=== PATIENT | female | born 1950 | race Caucasian/White ===

== ENCOUNTER 2017-04-22 07:33 | Emergency (ER) | payer MEDICARE, OTHER ==
[2017-04-22 11:03] LABS: ADD MAN DIFF? NO
[2017-04-22 11:10] LABS: WHITE BLOOD COUNT 7.2 10^3/ul (4.8-10.8)
[2017-04-22 11:10] LABS: BASOPHILS % 0.6 % (0.0-2.0); EOSINOPHILS # 0.1 10^3/ul (0.0-0.5); EOSINOPHILS % 0.8 % (0.0-7.0); HEMATOCRIT 34.6 % (37.0-47.0); HEMOGLOBIN 11.5 g/dl (12.0-16.0); LYMPHOCYTES # 0.9 10^3/ul (0.8-2.9); LYMPHOCYTES % 12.7 % (15.0-51.0); MEAN CORPUSCULAR HEMOGLOBIN 26.5 pg (29.0-33.0); MEAN CORPUSCULAR HGB CONC 33.2 g/dl (32.0-37.0); MEAN CORPUSCULAR VOLUME 79.7 fl (82.0-101.0); MEAN PLATELET VOLUME 11.1 fl (7.4-10.4); MONOCYTE # 0.5 10^3/ul (0.3-0.9); MONOCYTES % 7.3 % (0.0-11.0); NEUTROPHIL # 5.6 10^3/ul (1.6-7.5); NEUTROPHILS % 78.2 % (39.0-77.0); PLATELET COUNT 297 10^3/UL (140-415); RED BLOOD COUNT 4.34 10^6/ul (4.20-5.40); RED CELL DISTRIBUTION WIDTH 14.1 % (11.5-14.5)
[2017-04-22 11:30] LABS: ANION GAP 14 (8-16); BLOOD UREA NITROGEN 23 mg/dl (7-20); CALCIUM 8.6 mg/dl (8.4-10.2); CARBON DIOXIDE 24 mmol/L (21-31); CHLORIDE 107 mmol/L (97-110); CREATININE 0.93 mg/dl (0.44-1.00); GLUCOSE 153 mg/dl (70-220); POTASSIUM 4.2 mmol/L (3.5-5.1); SODIUM 141 mmol/L (135-144)
[2017-04-22 11:39] LABS: B-TYPE NATRIURETIC PEPTIDE 8680 PG/ML (0-125)
[2017-04-22 11:42] LABS: TROPONIN-I 0.071 ng/ml (0.00-0.12)
[2017-04-22 11:48] LABS: ADD UMIC YES; UR ASCORBIC ACID NEGATIVE (NEGATIVE); UR BACTERIA MANY /HPF (NONE SEEN); UR BILIRUBIN (Dip) NEGATIVE (NEGATIVE); UR BLOOD (Dip) 1+ mg/dL (NEGATIVE); UR CLARITY CLOUDY (CLEAR); UR COLOR YELLOW (YELLOW); UR GLUCOSE (Dip) NEGATIVE (NEGATIVE); UR KETONES (Dip) NEGATIVE (NEGATIVE); UR LEUKOCYTE ESTERASE (Dip) NEGATIVE Leu/ul (NEGATIVE); UR MUCUS FEW /HPF (NONE SEEN); UR NITRITE (Dip) NEGATIVE (NEGATIVE); UR RBC 6 /HPF (0-5); UR SPECIFIC GRAVITY (Dip) 1.018 (1.003-1.030); UR TOTAL PROTEIN (Dip) 3+ mg/dl (NEGATIVE); UR UROBILINOGEN (Dip) NEGATIVE (NEGATIVE); UR WBC 18 /HPF (0-5)
[2017-04-22] MEDS: ACETAMINOPHEN 325 MG TAB PO (12:42)
[2017-04-22 13:17] LABS: D-DIMER 1168.97 ng/ml (<460)
[2017-04-22 14:16] LABS: TROPONIN-I 0.078 ng/ml (0.00-0.12)
[2017-04-22] MEDS: IODIXANOL LOCM 100 ML BTL (15:49)
[2017-04-22] MEDS: SOD CHLORIDE 0.9% 100 ML (15:49)
[2017-04-22] MEDS: ONDANSETRON 4 MG INJ IV (17:06)
== END 2017-04-22 17:21 | disposition home or self-care (01) ==
LOC: FTE 07:33
DX: R05 Cough (principal); R06.02 Shortness of breath; I10 Essential (primary) hypertension; E03.9 Hypothyroidism, unspecified; E11.9 Type 2 diabetes mellitus without complications; R50.9 Fever, unspecified
CPT/HCPCS: 36415; 71045; 71275; 80048; 81001; 83880; 84484; 85025; 85378; 87086; 87400; 93005; 93971; 96374; 99285-25

== ENCOUNTER 2017-08-01 06:38 | Inpatient (IN) | payer MEDICARE, OTHER ==
[2017-08-01 07:20] LABS: ADD MAN DIFF? NO
[2017-08-01 07:25] LABS: WHITE BLOOD COUNT 7.2 10^3/ul (4.8-10.8)
[2017-08-01 07:25] LABS: BASOPHIL # 0.1 10^3/ul (0.0-0.1); BASOPHILS % 0.8 % (0.0-2.0); EOSINOPHILS # 0.3 10^3/ul (0.0-0.5); EOSINOPHILS % 3.9 % (0.0-7.0); HEMATOCRIT 32.3 % (37.0-47.0); LYMPHOCYTES % 41.8 % (15.0-51.0); MEAN CORPUSCULAR HEMOGLOBIN 26.3 pg (29.0-33.0); MEAN CORPUSCULAR HGB CONC 34.1 g/dl (32.0-37.0); MEAN CORPUSCULAR VOLUME 77.3 fl (82.0-101.0); MEAN PLATELET VOLUME 10.6 fl (7.4-10.4); MONOCYTE # 0.6 10^3/ul (0.3-0.9); MONOCYTES % 7.8 % (0.0-11.0); NEUTROPHIL # 3.3 10^3/ul (1.6-7.5); NEUTROPHILS % 45.4 % (39.0-77.0); PLATELET COUNT 326 10^3/UL (140-415); RED BLOOD COUNT 4.18 10^6/ul (4.20-5.40); RED CELL DISTRIBUTION WIDTH 15.2 % (11.5-14.5)
[2017-08-01 07:42] LABS: INR 0.94; PROTIME 12.7 Sec (11.9-14.9)
[2017-08-01 07:43] LABS: PARTIAL THROMBOPLASTIN TIME 32.5 Sec (25.0-35.0)
[2017-08-01 07:44] LABS: ANION GAP 10 (8-16); CARBON DIOXIDE 29 mmol/L (21-31); CHLORIDE 106 mmol/L (97-110); CHOLESTEROL 162 mg/dl (100-200); GLUCOSE 131 mg/dl (70-220); HDL CHOLESTEROL 40 mg/dl (35-98); LDL CHOLESTEROL,CALCULATED 55 mg/dl; TRIGLYCERIDES 333 mg/dl (0-149)
[2017-08-01 07:49] LABS: BLOOD UREA NITROGEN 31 mg/dl (7-20); CALCIUM 8.7 mg/dl (8.4-10.2); CREATININE 0.96 mg/dl (0.44-1.00); POTASSIUM 4.4 mmol/L (3.5-5.1); SODIUM 141 mmol/L (135-144)
[2017-08-01] MEDS ORDERED: IODIXANOL LOCM 100 ML BTL (09:26)
[2017-08-01] MEDS ORDERED: FENTAnyl 50 MCG/ML VIAL (09:26)
[2017-08-01] MEDS ORDERED: LIDOCAINE 1% (MDV) 20 ML INJ (09:26)
[2017-08-01] MEDS ORDERED: SOD CHLORIDE 0.9% 500 ML (09:27)
[2017-08-01] MEDS ORDERED: MIDAZOLAM 1 MG/ML 2 ML INJ (09:27)
[2017-08-01] MEDS ORDERED: VERAPAMIL 5 MG INJ (09:28)
[2017-08-01] MEDS ORDERED: NITROGLYCERIN (IC) 100 MCG/ML INJ (09:28)
[2017-08-01] MEDS ORDERED: BIVALIRUDIN 250MG /NS 50 ML 50 ML IVPB (10:10)
[2017-08-01] MEDS ORDERED: TICAGRELOR 90 MG TABLET (10:42)
[2017-08-01] MEDS ORDERED: ASPIRIN 325 MG TAB (10:43)
[2017-08-01] MEDS: BIVALIRUDIN 250MG /NS 50 ML 50 ML IV (11:00)
[2017-08-01] MEDS ORDERED: ZOLPIDEM 5 MG TAB PO (11:00)
[2017-08-01] MEDS: SOD CHLORIDE 0.9% 1,000 ML IV (11:51)
[2017-08-01] MEDS: OXYCODONE/ACETAMINOPHEN (5/325) TAB PO (11:54)
[2017-08-01] MEDS ORDERED: DEXTROSE 50% 50 ML SYRINGE IV ×2 (16:30)
[2017-08-01] MEDS ORDERED: GLUCOSE GEL 15 GRAM TUBE PO ×2 (16:30)
[2017-08-01] MEDS ORDERED: GLUCOSE GEL 15 GRAM TUBE BUCCAL (16:30)
[2017-08-01] MEDS ORDERED: GLUCAGON 1 MG INJ IM (16:30)
[2017-08-01] MEDS: INSULIN ASPART [NOVOLOG] 3 ML PEN SC ×2 (16:56→20:35)
[2017-08-01] MEDS: ATORVASTATIN 20 MG TAB PO (20:19)
[2017-08-01] MEDS: CILOSTAZOL 100 MG TAB PO (20:22)
[2017-08-01] MEDS: TICAGRELOR 90 MG TABLET PO (20:23)
[2017-08-01] MEDS: PREGABALIN 75 MG CAP PO (20:35)
[2017-08-02] MEDS: ACCU-CHEK XX (02:00)
[2017-08-02] MEDS: morphine 2 MG INJ IV (03:23)
[2017-08-02 05:18] LABS: ADD MAN DIFF? NO
[2017-08-02 05:23] LABS: BASOPHILS % 0.5 % (0.0-2.0); EOSINOPHILS # 0.2 10^3/ul (0.0-0.5); EOSINOPHILS % 1.9 % (0.0-7.0); HEMATOCRIT 29.4 % (37.0-47.0); HEMOGLOBIN 9.9 g/dl (12.0-16.0); LYMPHOCYTES # 1.5 10^3/ul (0.8-2.9); LYMPHOCYTES % 18.3 % (15.0-51.0); MEAN CORPUSCULAR HEMOGLOBIN 26.1 pg (29.0-33.0); MEAN CORPUSCULAR HGB CONC 33.7 g/dl (32.0-37.0); MEAN CORPUSCULAR VOLUME 77.6 fl (82.0-101.0); MEAN PLATELET VOLUME 10.7 fl (7.4-10.4); MONOCYTE # 0.8 10^3/ul (0.3-0.9); MONOCYTES % 9.4 % (0.0-11.0); NEUTROPHIL # 5.6 10^3/ul (1.6-7.5); NEUTROPHILS % 69.7 % (39.0-77.0); PLATELET COUNT 297 10^3/UL (140-415); RED BLOOD COUNT 3.79 10^6/ul (4.20-5.40); RED CELL DISTRIBUTION WIDTH 15.4 % (11.5-14.5)
[2017-08-02 05:38] LABS: PHOSPHORUS 4.5 mg/dl (2.5-4.9)
[2017-08-02 05:38] LABS: MAGNESIUM 1.9 mg/dl (1.7-2.5)
[2017-08-02 05:39] LABS: ANION GAP 13 (8-16); BLOOD UREA NITROGEN 32 mg/dl (7-20); CALCIUM 8.3 mg/dl (8.4-10.2); CARBON DIOXIDE 26 mmol/L (21-31); CHLORIDE 105 mmol/L (97-110); CREATINE KINASE 118 IU/L (23-200); CREATININE 1.24 mg/dl (0.44-1.00); GLUCOSE 149 mg/dl (70-220); POTASSIUM 3.7 mmol/L (3.5-5.1); SODIUM 140 mmol/L (135-144)
[2017-08-02 05:49] LABS: CK INDEX 2.2; CK-MB 2.63 ng/ml (0.0-2.4)
[2017-08-02 05:53] LABS: TROPONIN-I 0.992 ng/ml (0.000-0.120)
[2017-08-02] MEDS: LEVOTHYROXINE 50 MCG TAB PO (06:57)
[2017-08-02] MEDS: INSULIN ASPART [NOVOLOG] 3 ML PEN SC ×4 (07:56→20:53)
[2017-08-02] MEDS: ONDANSETRON 4 MG INJ IV (08:05)
[2017-08-02] MEDS: ASPIRIN (EC) 81 MG TAB PO (09:21)
[2017-08-02] MEDS: PREGABALIN 75 MG CAP PO ×2 (09:22→21:53)
[2017-08-02] MEDS: TICAGRELOR 90 MG TABLET PO ×2 (09:22→20:52)
[2017-08-02] MEDS: CILOSTAZOL 100 MG TAB PO ×2 (09:23→20:54)
[2017-08-02] MEDS: BENAZEPRIL 10 MG TAB PO (12:29)
[2017-08-02 16:07] LABS: TROPONIN-I 0.913 ng/ml (0.000-0.120)
[2017-08-02 18:39] LABS: ADD UMIC YES; UR ASCORBIC ACID NEGATIVE (NEGATIVE); UR BILIRUBIN (Dip) NEGATIVE (NEGATIVE); UR BLOOD (Dip) NEGATIVE (NEGATIVE); UR CLARITY CLOUDY (CLEAR); UR COLOR YELLOW (YELLOW); UR GLUCOSE (Dip) NEGATIVE (NEGATIVE); UR KETONES (Dip) NEGATIVE (NEGATIVE); UR LEUKOCYTE ESTERASE (Dip) 2+ Leu/ul (NEGATIVE); UR NITRITE (Dip) NEGATIVE (NEGATIVE); UR RBC 1 /HPF (0-5); UR SPECIFIC GRAVITY (Dip) 1.011 (1.003-1.030); UR SQUAMOUS EPITHELIAL CELL FEW /HPF (FEW); UR TOTAL PROTEIN (Dip) 2+ mg/dl (NEGATIVE); UR UROBILINOGEN (Dip) NEGATIVE (NEGATIVE); UR WBC 31 /HPF (0-5)
[2017-08-02 18:46] LABS: SODIUM,URINE RANDOM 24 mmol/L (30-90)
[2017-08-02] MEDS: ATORVASTATIN 20 MG TAB PO (20:50)
[2017-08-02] MEDS: ACETYLCYSTEINE 600 MG CAP PO (20:54)
[2017-08-02] MEDS: INSULIN GLARGINE [LANtus] 3 ML PEN SC (21:10)
[2017-08-03] MEDS: OXYCODONE/ACETAMINOPHEN (5/325) TAB PO ×2 (01:54→08:20)
[2017-08-03] MEDS: ACCU-CHEK XX (01:58)
[2017-08-03] MEDS ORDERED: ACCU-CHEK XX (02:00)
[2017-08-03] MEDS: LEVOTHYROXINE 50 MCG TAB PO (06:09)
[2017-08-03 07:15] LABS: ADD MAN DIFF? NO
[2017-08-03 07:17] LABS: BASOPHILS % 0.5 % (0.0-2.0); EOSINOPHILS # 0.3 10^3/ul (0.0-0.5); EOSINOPHILS % 4.3 % (0.0-7.0); HEMATOCRIT 26.4 % (37.0-47.0); HEMOGLOBIN 9.1 g/dl (12.0-16.0); LYMPHOCYTES # 1.9 10^3/ul (0.8-2.9); LYMPHOCYTES % 28.5 % (15.0-51.0); MEAN CORPUSCULAR HEMOGLOBIN 26.6 pg (29.0-33.0); MEAN CORPUSCULAR HGB CONC 34.5 g/dl (32.0-37.0); MEAN CORPUSCULAR VOLUME 77.2 fl (82.0-101.0); MEAN PLATELET VOLUME 10.7 fl (7.4-10.4); MONOCYTE # 0.5 10^3/ul (0.3-0.9); MONOCYTES % 8.3 % (0.0-11.0); NEUTROPHIL # 3.8 10^3/ul (1.6-7.5); NEUTROPHILS % 58.1 % (39.0-77.0); PLATELET COUNT 259 10^3/UL (140-415); RED BLOOD COUNT 3.42 10^6/ul (4.20-5.40); RED CELL DISTRIBUTION WIDTH 15.4 % (11.5-14.5)
[2017-08-03 07:17] LABS: WHITE BLOOD COUNT 6.5 10^3/ul (4.8-10.8)
[2017-08-03 07:48] LABS: ANION GAP 13 (8-16); BLOOD UREA NITROGEN 49 mg/dl (7-20); CALCIUM 8.2 mg/dl (8.4-10.2); CARBON DIOXIDE 23 mmol/L (21-31); CHLORIDE 103 mmol/L (97-110); CREATININE 2.19 mg/dl (0.44-1.00); GLUCOSE 123 mg/dl (70-220); POTASSIUM 4.4 mmol/L (3.5-5.1); SODIUM 135 mmol/L (135-144)
[2017-08-03 07:52] LABS: PHOSPHORUS 5.9 mg/dl (2.5-4.9)
[2017-08-03 07:52] LABS: MAGNESIUM 2.3 mg/dl (1.7-2.5)
[2017-08-03] MEDS: PREGABALIN 75 MG CAP PO ×2 (08:19→20:12)
[2017-08-03] MEDS: CILOSTAZOL 100 MG TAB PO ×2 (08:19→20:12)
[2017-08-03] MEDS: ACETYLCYSTEINE 600 MG CAP PO ×2 (08:19→20:12)
[2017-08-03] MEDS: ASPIRIN (EC) 81 MG TAB PO (08:19)
[2017-08-03] MEDS: TICAGRELOR 90 MG TABLET PO ×2 (08:21→20:28)
[2017-08-03] MEDS: INSULIN ASPART [NOVOLOG] 3 ML PEN SC ×4 (08:22→20:30)
[2017-08-03] MEDS: MAGNESIUM CITRATE 300 ML BTL PO (12:00)
[2017-08-03] MEDS ORDERED: morphine LIQ (10 MG/5 ML) CUP PO (19:00)
[2017-08-03] MEDS: ATORVASTATIN 20 MG TAB PO (20:12)
[2017-08-03] MEDS: INSULIN GLARGINE [LANtus] 3 ML PEN SC (20:30)
[2017-08-04] MEDS: ACCU-CHEK XX (02:00)
[2017-08-04] MEDS: LEVOTHYROXINE 50 MCG TAB PO (06:31)
[2017-08-04] MEDS: ACETAMINOPHEN 325 MG TAB PO (06:44)
[2017-08-04 07:05] LABS: ADD MAN DIFF? NO
[2017-08-04 07:09] LABS: BASOPHILS % 0.6 % (0.0-2.0); EOSINOPHILS # 0.3 10^3/ul (0.0-0.5); HEMATOCRIT 27.7 % (37.0-47.0); HEMOGLOBIN 9.3 g/dl (12.0-16.0); LYMPHOCYTES # 2.1 10^3/ul (0.8-2.9); LYMPHOCYTES % 29.7 % (15.0-51.0); MEAN CORPUSCULAR HEMOGLOBIN 25.9 pg (29.0-33.0); MEAN CORPUSCULAR HGB CONC 33.6 g/dl (32.0-37.0); MEAN CORPUSCULAR VOLUME 77.2 fl (82.0-101.0); MEAN PLATELET VOLUME 10.8 fl (7.4-10.4); MONOCYTE # 0.6 10^3/ul (0.3-0.9); MONOCYTES % 8.8 % (0.0-11.0); NEUTROPHILS % 56.6 % (39.0-77.0); PLATELET COUNT 281 10^3/UL (140-415); RED BLOOD COUNT 3.59 10^6/ul (4.20-5.40); RED CELL DISTRIBUTION WIDTH 15.2 % (11.5-14.5)
[2017-08-04 07:34] LABS: HEMOGLOBIN A1C 8.9 % (0-5.9)
[2017-08-04 07:35] LABS: ANION GAP 13 (8-16); BLOOD UREA NITROGEN 50 mg/dl (7-20); CALCIUM 8.4 mg/dl (8.4-10.2); CARBON DIOXIDE 23 mmol/L (21-31); CHLORIDE 102 mmol/L (97-110); CREATININE 2.21 mg/dl (0.44-1.00); GLUCOSE 110 mg/dl (70-220); POTASSIUM 4.5 mmol/L (3.5-5.1); SODIUM 133 mmol/L (135-144)
[2017-08-04] MEDS: AL HYDROX/MG HYDROX/SIMETH 30 ML CUP PO (07:41)
[2017-08-04] MEDS: INSULIN ASPART [NOVOLOG] 3 ML PEN SC ×4 (07:43→20:38)
[2017-08-04] MEDS: ACETYLCYSTEINE 600 MG CAP PO (08:39)
[2017-08-04] MEDS: CILOSTAZOL 100 MG TAB PO (08:39)
[2017-08-04] MEDS: ASPIRIN (EC) 81 MG TAB PO (08:39)
[2017-08-04] MEDS: PREGABALIN 75 MG CAP PO ×2 (08:39→20:42)
[2017-08-04] MEDS: TICAGRELOR 90 MG TABLET PO ×2 (08:40→20:36)
[2017-08-04] MEDS: ATORVASTATIN 20 MG TAB PO (20:35)
[2017-08-04] MEDS: INSULIN GLARGINE [LANtus] 3 ML PEN SC (20:37)
[2017-08-04] MEDS: OXYCODONE/ACETAMINOPHEN (5/325) TAB PO (21:27)
[2017-08-05] MEDS: ACCU-CHEK XX (01:41)
[2017-08-05] MEDS: OXYCODONE/ACETAMINOPHEN (5/325) TAB PO (01:43)
[2017-08-05] MEDS: LEVOTHYROXINE 50 MCG TAB PO (06:04)
[2017-08-05] MEDS: INSULIN ASPART [NOVOLOG] 3 ML PEN SC ×4 (07:55→20:39)
[2017-08-05 07:57] LABS: PHOSPHORUS 5.5 mg/dl (2.5-4.9)
[2017-08-05 07:59] LABS: BLOOD UREA NITROGEN 43 mg/dl (7-20); CALCIUM 8.3 mg/dl (8.4-10.2); CARBON DIOXIDE 23 mmol/L (21-31); CHLORIDE 106 mmol/L (97-110); CREATININE 1.47 mg/dl (0.44-1.00); GLUCOSE 119 mg/dl (70-220); SODIUM 136 mmol/L (135-144)
[2017-08-05 08:00] LABS: ANION GAP 11 (8-16); POTASSIUM 4.2 mmol/L (3.5-5.1)
[2017-08-05] MEDS: TICAGRELOR 90 MG TABLET PO ×2 (08:49→20:39)
[2017-08-05] MEDS: ASPIRIN (EC) 81 MG TAB PO (08:50)
[2017-08-05] MEDS: PREGABALIN 75 MG CAP PO ×2 (08:50→20:35)
[2017-08-05] MEDS: FAMOTIDINE 20 MG TAB PO (12:23)
[2017-08-05] MEDS: CEFTRIAXONE 1 GM/50 ML (PMX) 50 ML IVPB (12:24)
[2017-08-05] MEDS: ATORVASTATIN 20 MG TAB PO (20:34)
[2017-08-05] MEDS: INSULIN GLARGINE [LANtus] 3 ML PEN SC (20:37)
[2017-08-06] MEDS: ACCU-CHEK XX (01:37)
[2017-08-06] MEDS: ACETAMINOPHEN 325 MG TAB PO (01:41)
[2017-08-06] MEDS: LEVOTHYROXINE 50 MCG TAB PO (05:38)
[2017-08-06] MEDS: OXYCODONE/ACETAMINOPHEN (5/325) TAB PO ×2 (05:43→21:03)
[2017-08-06] MEDS: INSULIN ASPART [NOVOLOG] 3 ML PEN SC ×4 (07:55→20:43)
[2017-08-06 07:58] LABS: ADD MAN DIFF? NO
[2017-08-06 08:01] LABS: WHITE BLOOD COUNT 6.7 10^3/ul (4.8-10.8)
[2017-08-06 08:01] LABS: BASOPHIL # 0.1 10^3/ul (0.0-0.1); BASOPHILS % 0.7 % (0.0-2.0); EOSINOPHILS # 0.3 10^3/ul (0.0-0.5); EOSINOPHILS % 3.7 % (0.0-7.0); HEMATOCRIT 29.8 % (37.0-47.0); LYMPHOCYTES # 1.8 10^3/ul (0.8-2.9); LYMPHOCYTES % 27.1 % (15.0-51.0); MEAN CORPUSCULAR HEMOGLOBIN 26.4 pg (29.0-33.0); MEAN CORPUSCULAR HGB CONC 33.6 g/dl (32.0-37.0); MEAN CORPUSCULAR VOLUME 78.6 fl (82.0-101.0); MEAN PLATELET VOLUME 10.9 fl (7.4-10.4); MONOCYTE # 0.6 10^3/ul (0.3-0.9); MONOCYTES % 8.5 % (0.0-11.0); NEUTROPHILS % 59.9 % (39.0-77.0); PLATELET COUNT 322 10^3/UL (140-415); RED BLOOD COUNT 3.79 10^6/ul (4.20-5.40); RED CELL DISTRIBUTION WIDTH 15.6 % (11.5-14.5)
[2017-08-06 08:19] LABS: PHOSPHORUS 4.9 mg/dl (2.5-4.9)
[2017-08-06 08:19] LABS: MAGNESIUM 2.6 mg/dl (1.7-2.5)
[2017-08-06 08:21] LABS: ANION GAP 11 (8-16); BLOOD UREA NITROGEN 32 mg/dl (7-20); CALCIUM 8.7 mg/dl (8.4-10.2); CARBON DIOXIDE 23 mmol/L (21-31); CHLORIDE 110 mmol/L (97-110); CREATININE 1.25 mg/dl (0.44-1.00); GLUCOSE 94 mg/dl (70-220); POTASSIUM 4.2 mmol/L (3.5-5.1); SODIUM 140 mmol/L (135-144)
[2017-08-06] MEDS: FAMOTIDINE 20 MG TAB PO (08:42)
[2017-08-06] MEDS: ASPIRIN (EC) 81 MG TAB PO (08:42)
[2017-08-06] MEDS: PREGABALIN 75 MG CAP PO ×2 (08:47→20:32)
[2017-08-06] MEDS: TICAGRELOR 90 MG TABLET PO ×2 (08:58→20:43)
[2017-08-06] MEDS: CEFTRIAXONE 1 GM/50 ML (PMX) 50 ML IVPB (12:35)
[2017-08-06 16:40] LABS: AADO2 Arterial 20.5 mmHg (7.0-24.0); Arterial Base Excess -4.7 mmol/L (-3.0-3); Arterial Blood Gas Oxygen Sat 96.6 mmHG (95.0-98.0); Arterial COHb 0.3 % (0.0-3.0); Arterial Fraction of Oxyhgb 96.1 % (93.0-99.0); Arterial HCO3 19.3 mmol/L (22.0-26.0); Arterial MetHb 0.2 % (0.0-1.5); Arterial Total Hemglobin 11.1 g/dl (12.0-18.0); Arterial pCO2 31.9 mmhg (35-45); MODE ROOM AIR; Site LB
[2017-08-06] MEDS: FUROSEMIDE 20 MG TAB PO (17:58)
[2017-08-06] MEDS: ATORVASTATIN 20 MG TAB PO (20:31)
[2017-08-06] MEDS: INSULIN GLARGINE [LANtus] 3 ML PEN SC (20:43)
[2017-08-07] MEDS: ACETAMINOPHEN 325 MG TAB PO (00:44)
[2017-08-07] MEDS: ACCU-CHEK XX (02:00)
[2017-08-07] MEDS: LEVOTHYROXINE 50 MCG TAB PO (06:01)
[2017-08-07] MEDS: FUROSEMIDE 20 MG TAB PO (06:03)
[2017-08-07 07:16] LABS: ADD MAN DIFF? NO
[2017-08-07 07:19] LABS: WHITE BLOOD COUNT 7.4 10^3/ul (4.8-10.8)
[2017-08-07 07:19] LABS: BASOPHIL # 0.1 10^3/ul (0.0-0.1); BASOPHILS % 0.7 % (0.0-2.0); EOSINOPHILS # 0.3 10^3/ul (0.0-0.5); EOSINOPHILS % 4.2 % (0.0-7.0); HEMATOCRIT 31.9 % (37.0-47.0); HEMOGLOBIN 10.8 g/dl (12.0-16.0); LYMPHOCYTES # 2.4 10^3/ul (0.8-2.9); LYMPHOCYTES % 32.3 % (15.0-51.0); MEAN CORPUSCULAR HEMOGLOBIN 26.4 pg (29.0-33.0); MEAN CORPUSCULAR HGB CONC 33.9 g/dl (32.0-37.0); MONOCYTE # 0.6 10^3/ul (0.3-0.9); MONOCYTES % 8.7 % (0.0-11.0); NEUTROPHILS % 53.8 % (39.0-77.0); PLATELET COUNT 346 10^3/UL (140-415); RED BLOOD COUNT 4.09 10^6/ul (4.20-5.40); RED CELL DISTRIBUTION WIDTH 15.7 % (11.5-14.5)
[2017-08-07 07:48] LABS: PHOSPHORUS 5.3 mg/dl (2.5-4.9)
[2017-08-07 07:48] LABS: MAGNESIUM 2.4 mg/dl (1.7-2.5)
[2017-08-07 07:52] LABS: ANION GAP 15 (8-16); BLOOD UREA NITROGEN 29 mg/dl (7-20); CALCIUM 8.7 mg/dl (8.4-10.2); CARBON DIOXIDE 21 mmol/L (21-31); CHLORIDE 107 mmol/L (97-110); CREATININE 1.31 mg/dl (0.44-1.00); GLUCOSE 125 mg/dl (70-220); POTASSIUM 4.3 mmol/L (3.5-5.1); SODIUM 139 mmol/L (135-144)
[2017-08-07] MEDS: INSULIN ASPART [NOVOLOG] 3 ML PEN SC ×2 (07:55→12:02)
[2017-08-07] MEDS: ASPIRIN (EC) 81 MG TAB PO (08:19)
[2017-08-07] MEDS: FAMOTIDINE 20 MG TAB PO (08:19)
[2017-08-07] MEDS: PREGABALIN 75 MG CAP PO (08:19)
[2017-08-07] MEDS: TICAGRELOR 90 MG TABLET PO (08:23)
[2017-08-07] MEDS: OXYCODONE/ACETAMINOPHEN (5/325) TAB PO (11:09)
[2017-08-07] MEDS: CEFTRIAXONE 1 GM/50 ML (PMX) 50 ML IVPB (13:28)
[2017-08-07] MEDS ORDERED: BENAZEPRIL 10 MG TAB PO (21:00)
== END 2017-08-07 18:30 | disposition home or self-care (01) | DRG 249 ==
LOC: SDS 08-02 18:23 → ICU 08-02 18:30 → TEL 08-02 21:27 → SDS 06:38 → ICU 13:45
PROC: 02713EZ Dilation of Coronary Artery, Two Arteries with Two Intraluminal Devices, Percutaneous Approach (ICD-10-PCS; principal; 2017-08-01 08:53)
PROC: 4A023N7 Measurement of Cardiac Sampling and Pressure, Left Heart, Percutaneous Approach (ICD-10-PCS; 2017-08-01 08:53)
PROC: B211YZZ Fluoroscopy of Multiple Coronary Arteries using Other Contrast (ICD-10-PCS; 2017-08-01 08:53)
DX: I25.10 Atherosclerotic heart disease of native coronary artery without angina pectoris (principal); N17.9 Acute kidney failure, unspecified; N39.0 Urinary tract infection, site not specified; E11.9 Type 2 diabetes mellitus without complications; E78.5 Hyperlipidemia, unspecified; E03.9 Hypothyroidism, unspecified; E83.39 Other disorders of phosphorus metabolism; M19.91 Primary osteoarthritis, unspecified site; B96.20 Unspecified Escherichia coli [E. coli] as the cause of diseases classified elsewhere; N14.1 Nephropathy induced by other drugs, medicaments and biological substances; T50.8X5A Adverse effect of diagnostic agents, initial encounter; Y92.238 Other place in hospital as the place of occurrence of the external cause; I25.5 Ischemic cardiomyopathy; I10 Essential (primary) hypertension; M77.9 Enthesopathy, unspecified; Z79.84 Long term (current) use of oral hypoglycemic drugs
CPT/HCPCS: 36600; 70360; 71045; 80048; 80061; 81001; 82550; 82553; 82803; 82962; 83036; 83735; 84100; 84300; 84484; 85025; 85610; 85730; 87081; 87086; 93005; 93458; G0378

== ENCOUNTER 2018-09-30 06:01 | Inpatient (IN) | payer MEDICARE, OTHER ==
[2018-09-30 06:24] LABS: ADD MAN DIFF? NO
[2018-09-30 06:33] LABS: BASOPHIL # 0.1 10^3/ul (0.0-0.1); EOSINOPHILS # 0.3 10^3/ul (0.0-0.5); EOSINOPHILS % 3.7 % (0.0-7.0); HEMATOCRIT 30.2 % (37.0-47.0); LYMPHOCYTES # 2.5 10^3/ul (0.8-2.9); LYMPHOCYTES % 30.8 % (15.0-51.0); MEAN CORPUSCULAR HEMOGLOBIN 26.7 pg (29.0-33.0); MEAN CORPUSCULAR HGB CONC 33.1 g/dl (32.0-37.0); MEAN CORPUSCULAR VOLUME 80.7 fl (82.0-101.0); MEAN PLATELET VOLUME 10.7 fl (7.4-10.4); MONOCYTE # 0.6 10^3/ul (0.3-0.9); MONOCYTES % 7.4 % (0.0-11.0); NEUTROPHIL # 4.6 10^3/ul (1.6-7.5); NEUTROPHILS % 56.7 % (39.0-77.0); PLATELET COUNT 328 10^3/UL (140-415); RED BLOOD COUNT 3.74 10^6/ul (4.20-5.40); RED CELL DISTRIBUTION WIDTH 14.5 % (11.5-14.5)
[2018-09-30 06:33] LABS: WHITE BLOOD COUNT 8.1 10^3/ul (4.8-10.8)
[2018-09-30 06:42] LABS: ANION GAP 12 (5-13); CALCIUM 9.4 mg/dl (8.4-10.2); CARBON DIOXIDE 25 mmol/L (21-31); CHLORIDE 102 mmol/L (97-110); CHOL/HDL RATIO 4.8 RATIO; CHOLESTEROL 156 mg/dl (100-200); Estimated GFR 34 mL/min (>60); GLUCOSE 158 mg/dl (70-220); HDL CHOLESTEROL 32 mg/dl (35-98); LDL CHOLESTEROL,CALCULATED 49 mg/dl; POTASSIUM 4.7 mmol/L (3.5-5.1); SODIUM 139 mmol/L (135-144); TRIGLYCERIDES 373 mg/dl (0-149)
[2018-09-30 06:46] LABS: INR 0.89; PROTIME 12.1 Sec (11.9-14.9); PT RATIO 0.9
[2018-09-30 06:47] LABS: PARTIAL THROMBOPLASTIN TIME 33.5 Sec (23.0-35.0)
[2018-09-30 06:56] LABS: BLOOD UREA NITROGEN 46 mg/dl (7-20); CREATININE 1.52 mg/dl (0.44-1.00)
[2018-09-30] MEDS: ACETAMINOPHEN 500 MG TAB PO (06:59)
[2018-09-30] MEDS: DIAZEPAM 5 MG TAB PO (07:00)
[2018-09-30] MEDS ORDERED: SOD CHLORIDE 0.45% 1,000 ML IV (07:00)
[2018-09-30] MEDS: CEFAZOLIN 1 GM/50 ML (PMX) 50 ML IVPB (07:00)
[2018-09-30] MEDS ORDERED: PHENYLephrine (100 MCG/ML) 10ML SYG (07:11)
[2018-09-30] MEDS ORDERED: EPHEDrine 25 MG/5 ML SYG (07:11)
[2018-09-30] MEDS ORDERED: EPINEPHrine 0.1 MG/ML SYG (07:11)
[2018-09-30] MEDS ORDERED: FENTAnyl 50 MCG/ML VIAL ×2 (07:11→07:35)
[2018-09-30] MEDS ORDERED: SOD CHLORIDE 0.9% 500 ML (07:26)
[2018-09-30] MEDS ORDERED: IODIXANOL LOCM 50 ML BTL ×2 (07:26→08:38)
[2018-09-30] MEDS ORDERED: LIDOCAINE 1%/EPI 30 ML INJ (07:26)
[2018-09-30] MEDS ORDERED: BUPIVACAINE 0.5% (SDV) 30 ML INJ (07:26)
[2018-09-30] MEDS ORDERED: hydrALAzine 20 MG INJ IV (07:30)
[2018-09-30] MEDS ORDERED: ATROPINE 1 MG/10 ML SYRINGE IV (07:30)
[2018-09-30] MEDS: POLYMYXIN/BACITRACIN 1L IRRIG IRR (07:30)
[2018-09-30] MEDS ORDERED: LABETALOL HCL 20MG INJ IV (07:30)
[2018-09-30] MEDS ORDERED: EPHEDrine 25 MG/5 ML SYG IV (07:30)
[2018-09-30] MEDS: CEFAZOLIN 2 GM/50 ML (PMX) 50 ML IVPB (07:30)
[2018-09-30] MEDS ORDERED: FENTAnyl 50 MCG/ML VIAL IV (07:30)
[2018-09-30] MEDS ORDERED: DIPHENHYDRAMINE 50 MG INJ IV (07:30)
[2018-09-30] MEDS ORDERED: ALBUTEROL 0.083% (NEB) 2.5 MG/3 ML AMP HHN (07:30)
[2018-09-30 09:38] LABS: IMMEDIATE SPIN CROSSMATCH 1 2
[2018-09-30 09:46] LABS: ADD MAN DIFF? NO
[2018-09-30 09:48] LABS: BASOPHIL # 0.1 10^3/ul (0.0-0.1); BASOPHILS % 0.8 % (0.0-2.0); EOSINOPHILS # 0.2 10^3/ul (0.0-0.5); EOSINOPHILS % 2.8 % (0.0-7.0); HEMATOCRIT 25.8 % (37.0-47.0); HEMOGLOBIN 8.1 g/dl (12.0-16.0); LYMPHOCYTES # 1.7 10^3/ul (0.8-2.9); MEAN CORPUSCULAR HEMOGLOBIN 26.4 pg (29.0-33.0); MEAN CORPUSCULAR HGB CONC 31.4 g/dl (32.0-37.0); MEAN PLATELET VOLUME 10.8 fl (7.4-10.4); MONOCYTE # 0.4 10^3/ul (0.3-0.9); MONOCYTES % 6.7 % (0.0-11.0); NEUTROPHIL # 3.7 10^3/ul (1.6-7.5); NEUTROPHILS % 61.4 % (39.0-77.0); PLATELET COUNT 274 10^3/UL (140-415); RED BLOOD COUNT 3.07 10^6/ul (4.20-5.40); RED CELL DISTRIBUTION WIDTH 14.6 % (11.5-14.5)
[2018-09-30 09:50] LABS: HOLD TRANSMISSIONS 1
[2018-09-30] MEDS ORDERED: HYDROCODONE/APAP (5/325) TAB PO (11:00)
[2018-09-30] MEDS ORDERED: NACL 0.9% 3 ML SYG IV (11:00)
[2018-09-30] MEDS ORDERED: ONDANSETRON 4 MG INJ IV (11:00)
[2018-09-30] MEDS ORDERED: MAGNESIUM HYDROXIDE 30ML CUP PO (11:00)
[2018-09-30] MEDS: DEXTROSE 5%-0.45% NACL 1,000 ML IV (11:16)
[2018-09-30 11:28] LABS: HEMATOCRIT 29.2 % (37.0-47.0); HEMOGLOBIN 9.7 g/dl (12.0-16.0)
[2018-09-30] MEDS ORDERED: GLUCOSE GEL 15 GRAM TUBE BUCCAL (11:30)
[2018-09-30] MEDS ORDERED: DEXTROSE 50% 50 ML SYRINGE IV ×2 (11:30)
[2018-09-30] MEDS ORDERED: GLUCOSE GEL 15 GRAM TUBE PO ×2 (11:30)
[2018-09-30] MEDS ORDERED: GLUCAGON 1 MG INJ IM (11:30)
[2018-09-30] MEDS: INSULIN ASPART [NOVOLOG] 3 ML PEN SC ×3 (12:56→20:53)
[2018-09-30] MEDS: SOD CHLORIDE 0.45% 1,000 ML IV (13:05)
[2018-09-30 19:01] LABS: HEMATOCRIT 30.5 % (37.0-47.0); HEMOGLOBIN 10.2 g/dl (12.0-16.0)
[2018-10-01 00:56] LABS: HEMATOCRIT 29.6 % (37.0-47.0)
[2018-10-01] MEDS: INSULIN ASPART [NOVOLOG] 3 ML PEN SC ×6 (01:00→21:11)
[2018-10-01] MEDS: ACCU-CHEK XX ×6 (01:29→21:11)
[2018-10-01] MEDS ORDERED: ACCU-CHEK XX (02:00)
[2018-10-01 04:52] LABS: ADD MAN DIFF? NO
[2018-10-01 05:08] LABS: WHITE BLOOD COUNT 8.4 10^3/ul (4.8-10.8)
[2018-10-01 05:08] LABS: BASOPHIL # 0.1 10^3/ul (0.0-0.1); BASOPHILS % 0.6 % (0.0-2.0); EOSINOPHILS # 0.1 10^3/ul (0.0-0.5); EOSINOPHILS % 1.7 % (0.0-7.0); HEMATOCRIT 30.3 % (37.0-47.0); HEMOGLOBIN 9.9 g/dl (12.0-16.0); LYMPHOCYTES # 1.8 10^3/ul (0.8-2.9); LYMPHOCYTES % 21.7 % (15.0-51.0); MEAN CORPUSCULAR HEMOGLOBIN 27.3 pg (29.0-33.0); MEAN CORPUSCULAR HGB CONC 32.7 g/dl (32.0-37.0); MEAN CORPUSCULAR VOLUME 83.7 fl (82.0-101.0); MEAN PLATELET VOLUME 11.1 fl (7.4-10.4); MONOCYTE # 0.6 10^3/ul (0.3-0.9); MONOCYTES % 7.2 % (0.0-11.0); NEUTROPHIL # 5.7 10^3/ul (1.6-7.5); NEUTROPHILS % 68.4 % (39.0-77.0); PLATELET COUNT 220 10^3/UL (140-415); RED BLOOD COUNT 3.62 10^6/ul (4.20-5.40); RED CELL DISTRIBUTION WIDTH 15.2 % (11.5-14.5)
[2018-10-01] MEDS: PANTOPRAZOLE (EC) 40 MG TAB PO (05:12)
[2018-10-01 05:25] LABS: ANION GAP 6 (5-13); BLOOD UREA NITROGEN 31 mg/dl (7-20); CALCIUM 8.4 mg/dl (8.4-10.2); CARBON DIOXIDE 23 mmol/L (21-31); CHLORIDE 110 mmol/L (97-110); CREATININE 1.13 mg/dl (0.44-1.00); Estimated GFR 48 mL/min (>60); GLUCOSE 142 mg/dl (70-220); POTASSIUM 4.1 mmol/L (3.5-5.1); SODIUM 139 mmol/L (135-144)
[2018-10-01] MEDS ORDERED: hydrALAzine 20 MG INJ IV (11:30)
[2018-10-01 12:28] LABS: HEMATOCRIT 30.1 % (37.0-47.0); HEMOGLOBIN 9.9 g/dl (12.0-16.0)
[2018-10-01] MEDS: LEVOTHYROXINE 50 MCG TAB PO (12:53)
[2018-10-01] MEDS: PREGABALIN 75 MG CAP PO ×2 (12:53→21:08)
[2018-10-01] MEDS: FUROSEMIDE 20 MG TAB PO ×2 (12:54→19:49)
[2018-10-01] MEDS: SOD CHLORIDE 0.45% 1,000 ML IV (12:58)
[2018-10-01 18:11] LABS: HEMATOCRIT 29.9 % (37.0-47.0); HEMOGLOBIN 9.9 g/dl (12.0-16.0)
[2018-10-01] MEDS: ATORVASTATIN 20 MG TAB PO (21:07)
[2018-10-02] MEDS: INSULIN ASPART [NOVOLOG] 3 ML PEN SC ×6 (01:15→20:26)
[2018-10-02] MEDS: ACCU-CHEK XX ×8 (01:16→21:00)
[2018-10-02] MEDS: ACETAMINOPHEN 325 MG TAB PO (03:29)
[2018-10-02] MEDS: PANTOPRAZOLE (EC) 40 MG TAB PO (05:21)
[2018-10-02] MEDS: FUROSEMIDE 20 MG TAB PO ×2 (05:21→17:19)
[2018-10-02 06:33] LABS: ADD MAN DIFF? NO
[2018-10-02 06:38] LABS: WHITE BLOOD COUNT 7.5 10^3/ul (4.8-10.8)
[2018-10-02 06:38] LABS: BASOPHIL # 0.1 10^3/ul (0.0-0.1); BASOPHILS % 0.7 % (0.0-2.0); EOSINOPHILS # 0.2 10^3/ul (0.0-0.5); EOSINOPHILS % 2.1 % (0.0-7.0); HEMATOCRIT 27.8 % (37.0-47.0); HEMOGLOBIN 9.1 g/dl (12.0-16.0); LYMPHOCYTES % 26.2 % (15.0-51.0); MEAN CORPUSCULAR HEMOGLOBIN 27.8 pg (29.0-33.0); MEAN CORPUSCULAR HGB CONC 32.7 g/dl (32.0-37.0); MEAN PLATELET VOLUME 11.3 fl (7.4-10.4); MONOCYTE # 0.7 10^3/ul (0.3-0.9); MONOCYTES % 9.3 % (0.0-11.0); NEUTROPHIL # 4.6 10^3/ul (1.6-7.5); NEUTROPHILS % 61.4 % (39.0-77.0); PLATELET COUNT 208 10^3/UL (140-415); RED BLOOD COUNT 3.27 10^6/ul (4.20-5.40); RED CELL DISTRIBUTION WIDTH 15.3 % (11.5-14.5)
[2018-10-02] MEDS: LEVOTHYROXINE 50 MCG TAB PO (06:53)
[2018-10-02 07:01] LABS: ALANINE AMINOTRANSFERASE 26 IU/L (13-69); ALBUMIN/GLOBULIN RATIO 0.93; ALKALINE PHOSPHATASE 75 IU/L (42-121); ANION GAP 6 (5-13); ASPARTATE AMINO TRANSFERASE 21 IU/L (15-46); BILIRUBIN,INDIRECT 0.4 mg/dl (0-1.1); BILIRUBIN,TOTAL 0.4 mg/dl (0.2-1.3); BLOOD UREA NITROGEN 33 mg/dl (7-20); CALCIUM 8.6 mg/dl (8.4-10.2); CARBON DIOXIDE 24 mmol/L (21-31); CHLORIDE 107 mmol/L (97-110); CREATININE 1.18 mg/dl (0.44-1.00); Estimated GFR 46 mL/min (>60); GLUCOSE 193 mg/dl (70-220); SODIUM 137 mmol/L (135-144); TOTAL PROTEIN 6.2 g/dl (6.1-8.1)
[2018-10-02] MEDS: PREGABALIN 75 MG CAP PO ×2 (08:50→20:27)
[2018-10-02] MEDS: CEFAZOLIN 1 GM/50 ML (PMX) 50 ML IVPB ×2 (10:02→20:07)
[2018-10-02] MEDS ORDERED: glipiZIDE 10 MG TAB PO (17:25)
[2018-10-02] MEDS: ATORVASTATIN 20 MG TAB PO (20:07)
[2018-10-02] MEDS: BENAZEPRIL 10 MG TAB PO (20:08)
[2018-10-02] MEDS: INSULIN GLARGINE [LANTus] (100 UNITS/ML) SYG SC (20:16)
[2018-10-03] MEDS: INSULIN ASPART [NOVOLOG] 3 ML PEN SC ×5 (01:14→17:19)
[2018-10-03] MEDS: ACCU-CHEK XX ×7 (01:17→17:25)
[2018-10-03] MEDS: PANTOPRAZOLE (EC) 40 MG TAB PO (06:00)
[2018-10-03] MEDS: FUROSEMIDE 20 MG TAB PO ×2 (06:00→18:00)
[2018-10-03] MEDS: LEVOTHYROXINE 50 MCG TAB PO (06:01)
[2018-10-03 06:23] LABS: ADD MAN DIFF? NO
[2018-10-03 06:27] LABS: WHITE BLOOD COUNT 7.6 10^3/ul (4.8-10.8)
[2018-10-03 06:27] LABS: BASOPHILS % 0.5 % (0.0-2.0); EOSINOPHILS # 0.3 10^3/ul (0.0-0.5); EOSINOPHILS % 3.3 % (0.0-7.0); HEMATOCRIT 27.5 % (37.0-47.0); LYMPHOCYTES % 26.6 % (15.0-51.0); MEAN CORPUSCULAR HEMOGLOBIN 27.7 pg (29.0-33.0); MEAN CORPUSCULAR HGB CONC 32.7 g/dl (32.0-37.0); MEAN CORPUSCULAR VOLUME 84.6 fl (82.0-101.0); MEAN PLATELET VOLUME 11.1 fl (7.4-10.4); MONOCYTE # 0.6 10^3/ul (0.3-0.9); MONOCYTES % 8.1 % (0.0-11.0); NEUTROPHIL # 4.7 10^3/ul (1.6-7.5); NEUTROPHILS % 61.2 % (39.0-77.0); PLATELET COUNT 205 10^3/UL (140-415); RED BLOOD COUNT 3.25 10^6/ul (4.20-5.40); RED CELL DISTRIBUTION WIDTH 15.1 % (11.5-14.5)
[2018-10-03 06:55] LABS: ANION GAP 6 (5-13); BLOOD UREA NITROGEN 35 mg/dl (7-20); CALCIUM 8.7 mg/dl (8.4-10.2); CARBON DIOXIDE 23 mmol/L (21-31); CHLORIDE 108 mmol/L (97-110); CREATININE 1.16 mg/dl (0.44-1.00); Estimated GFR 47 mL/min (>60); GLUCOSE 210 mg/dl (70-220); POTASSIUM 4.1 mmol/L (3.5-5.1); SODIUM 137 mmol/L (135-144)
[2018-10-03 06:55] LABS: PHOSPHORUS 4.1 mg/dl (2.5-4.9)
[2018-10-03] MEDS: CEFAZOLIN 1 GM/50 ML (PMX) 50 ML IVPB (08:51)
[2018-10-03] MEDS: BENAZEPRIL 10 MG TAB PO (08:52)
[2018-10-03] MEDS: PREGABALIN 75 MG CAP PO (08:52)
== END 2018-10-03 19:00 | disposition home or self-care (01) | DRG 226 ==
LOC: SDS 06:01 → ICU 10:15 → TEL 10-01 22:40 → SDS 10:56 → ICU 10:56
PROC: 0JH608Z Insertion of Defibrillator Generator into Chest Subcutaneous Tissue and Fascia, Open Approach (ICD-10-PCS; principal; 2018-09-30 07:15)
PROC: 02HK3KZ Insertion of Defibrillator Lead into Right Ventricle, Percutaneous Approach (ICD-10-PCS; 2018-09-30 07:15)
PROC: 06HY33Z Insertion of Infusion Device into Lower Vein, Percutaneous Approach (ICD-10-PCS; 2018-09-30 07:15)
PROC: 30233N1 Transfusion of Nonautologous Red Blood Cells into Peripheral Vein, Percutaneous Approach (ICD-10-PCS; 2018-09-30 07:15)
DX: I25.5 Ischemic cardiomyopathy (principal); T81.19XA Other postprocedural shock, initial encounter; I50.22 Chronic systolic (congestive) heart failure; D62 Acute posthemorrhagic anemia; I13.0 Hypertensive heart and chronic kidney disease with heart failure and stage 1 through stage 4 chronic kidney disease, or unspecified chronic kidney disease; L76.02 Intraoperative hemorrhage and hematoma of skin and subcutaneous tissue complicating other procedure; E11.42 Type 2 diabetes mellitus with diabetic polyneuropathy; E11.22 Type 2 diabetes mellitus with diabetic chronic kidney disease; E78.5 Hyperlipidemia, unspecified; I25.10 Atherosclerotic heart disease of native coronary artery without angina pectoris; E66.9 Obesity, unspecified; N18.9 Chronic kidney disease, unspecified; E03.9 Hypothyroidism, unspecified; M19.90 Unspecified osteoarthritis, unspecified site; Y83.8 Other surgical procedures as the cause of abnormal reaction of the patient, or of later complication, without mention of misadventure at the time of the procedure; Z79.02 Long term (current) use of antithrombotics/antiplatelets; Z79.82 Long term (current) use of aspirin; Z95.5 Presence of coronary angioplasty implant and graft; Z68.35 Body mass index [BMI] 35.0-35.9, adult
CPT/HCPCS: 33249; 36430; 71045; 80048; 80053; 80061; 82962; 83735; 84100; 85014; 85018; 85025; 85610; 85730; 86850; 86900; 86901; 86920; 87081; 93005; 93306; 93922; 93931